=== PATIENT | male | born 1970 | race Caucasian/White ===

== ENCOUNTER 2023-03-09 18:17 | Inpatient (IN) | payer OTHER, SELFPAY ==
[~2023-03-09 18:17] MED LIST: Iopamidol-370 76% 500 ML MDV (1 ML CHARGE) ONE
[2023-03-09 18:47] LABS: #Basophils 0.1 thou/uL (0.0-0.2); #Eosinphils 0.2 thou/uL (0.0-0.7); #Neutrophils 6.5 thou/uL (1.40-6.50); %Basophils 0.7 % (0.0-1.0); %Lymphocytes 28.4 % (21.0-51.0); %Monocytes 8.9 % (0.0-10.0); %Neutrophils 59.7 % (42.0-75.0); Hemoglobin 14.3 g/dL (14.0-18.0); Mean Corpuscular HGB CONC 35.2 g/dL (32.0-36.0); Mean Corpuscular Hemoglobin 30.1 pg (27.0-31.0); Mean Corpuscular Volume 85.5 fl (78.0-98.0); Mean Platelet Volume 9.5 fL (7.4-10.4); Platelet Count 189 10x3/uL (130-400); Red Blood Cell (RBC) Count 4.75 mill/uL (4.70-6.10); White Blood Cell (WBC) Count 10.9 10x3/uL (4.8-10.8)
[2023-03-09 19:00] LABS: PTT 29.7 sec (22.9-36.1); Prothrombin Time 13.7 sec (12.0-14.7)
[2023-03-09 19:19] LABS: ALT (SGPT) 18 U/L (8-55); AST (SGOT) 20 U/L (5-34); Albumin 3.9 g/dL (3.5-5.0); Alkaline Phosphatase 95 U/L (40-110); Anion Gap 12 mmol/L (10-20); BUN (Urea Nitrogen) 9 mg/dL (8.4-25.7); Bilirubin, Total 0.4 mg/dL (0.2-1.2); CK (CPK) 60 U/L (30-200); Calc. Creatinine Clearance 0 mL/min (70-130); Calcium 9.1 mg/dL (7.8-10.44); Carbon Dioxide 24 mmol/L (22-29); Chloride 102 mmol/L (98-107); Estimated GFR 102; Globulin 2.9 g/dL (2.4-3.5); Glucose 105 mg/dL (70-105); Potassium 3.7 mmol/L (3.5-5.1); Protein, Total 6.8 g/dL (6.0-8.3); Sodium 134 mmol/L (136-145)
[2023-03-09] MEDS ORDERED: Lidocaine 1% (PF) 30 ML VIAL ONE (19:21)
[2023-03-09] MEDS ORDERED: Heparin 10,000 UNITS/ 10 ML VIAL ONE (19:22)
[2023-03-09] MEDS ORDERED: SUGAMMADEX SODIUM 200 MG/2 ML VIAL ONE (19:24)
[2023-03-09 19:34] LABS: CKMB 2.1 ng/mL (0-6.6)
[2023-03-09] MEDS ORDERED: niCARdipine 25 MG/10 ML SDV ONE (19:45)
[2023-03-09] MEDS ORDERED: Acetaminophen 325 MG TAB PO PRN (19:54)
[2023-03-09] MEDS ORDERED: niCARdipine 25 MG in Sodium Chloride 0.9% 250 ML 250 ML IVPB PRN (19:54)
[2023-03-09] MEDS ORDERED: PROPOFOL 200 MG/20 ML VIAL ONE (20:01)
[2023-03-09] MEDS ORDERED: Ondansetron PF 4 MG/2 ML Vial ONE (20:01)
[2023-03-09] MEDS ORDERED: Rocuronium Bromide 10 MG/ML (10ML VIAL) ONE (20:01)
[2023-03-09] MEDS ORDERED: Electrolyte Replacement Protocol 1 EACH FS SCH (21:13)
[2023-03-09] MEDS ORDERED: Dextrose 50% Abboject 50 ML SYRINGE SLOW IVP PRN (21:13)
[2023-03-09] MEDS ORDERED: Dextrose 5% in Water 1,000 ML IV PRN (21:13)
[2023-03-09] MEDS ORDERED: Glucagon 1 MG/ML KIT IM PRN (21:13)
[2023-03-09] MEDS: Atorvastatin Calcium 40 MG TAB PO SCH (21:40)
[2023-03-09] MEDS: Sodium Chloride 0.9% 1,000 ML IV SCH (21:40)
[2023-03-09 22:44] LABS: Amphetamine Detected (NotDetected); Barbiturates Screen Not Detected (NotDetected); Benzodiazepine Screen Not Detected (NotDetected); Cocaine Metabolite Screen Not Detected (NotDetected); Methadone Not Detected (NotDetected); Methamphetamine Detected (NotDetected); Opiate Screen Not Detected (NotDetected); Oxycodone Screen Not Detected (NotDetected); Phencyclidine (PCP) Not Detected (NotDetected); THC/Cannabinoid Screen Not Detected (NotDetected); Tricyclic Screen Not Detected (NotDetected)
[2023-03-09] MEDS: Labetalol HCl 100 MG/20 ML VIAL SLOW IVP PRN (23:38)
[2023-03-10] MEDS: hydrALAZINE 20 MG/ML VIAL SLOW IVP PRN (01:21)
[2023-03-10] MEDS: Sodium Chloride 0.9% 1,000 ML IV SCH ×2 (01:22→20:58)
[2023-03-10] MEDS: Labetalol HCl 100 MG/20 ML VIAL SLOW IVP PRN (02:36)
[2023-03-10 04:12] LABS: Anion Gap 12 mmol/L (10-20); BUN (Urea Nitrogen) 8 mg/dL (8.4-25.7); Calc. Creatinine Clearance 145 mL/min (70-130); Calcium 8.6 mg/dL (7.8-10.44); Carbon Dioxide 24 mmol/L (22-29); Cardiac Risk 4.3 (Less than 4.5); Chloride 104 mmol/L (98-107); Cholesterol 187 mg/dl (< 200 Desired); Estimated GFR 104; Glucose 120 mg/dL (70-105); HDL Cholesterol 44 mg/dL (>60 Neg Risk); LDL Cholesterol, Calculated 109 mg/dL; Magnesium 1.8 mg/dL (1.6-2.6); Potassium 3.6 mmol/L (3.5-5.1); Sodium 136 mmol/L (136-145); Triglycerides 169 mg/dL (Less than 150)
[2023-03-10 06:42] VITALS: BMI 27.2
[2023-03-10] MEDS ORDERED: Magnesium 2 GM/50 ML(in water) 2 GM in Premix Bag 1 BAG IVPB SCH (08:00)
[2023-03-10] MEDS: Famotidine/PF 20 mg/2ml Vial SLOW IVP SCH ×2 (08:27→20:58)
[2023-03-10] MEDS: Aspirin 325 mg Enteric Coated Tablet PO SCH (08:27)
[2023-03-10] MEDS: Aspirin 300 MG Suppository PR SCH (08:28)
[2023-03-10] MEDS: Atorvastatin Calcium 40 MG TAB PO SCH (21:02)
[2023-03-11] MEDS: Labetalol HCl 100 MG/20 ML VIAL SLOW IVP PRN ×6 (02:05→22:54)
[2023-03-11] MEDS: Aspirin 325 mg Enteric Coated Tablet PO SCH (08:18)
[2023-03-11] MEDS: Famotidine/PF 20 mg/2ml Vial SLOW IVP SCH ×2 (08:20→21:37)
[2023-03-11] MEDS: Sodium Chloride 0.9% 1,000 ML IV SCH ×2 (08:21→21:37)
[2023-03-11] MEDS: Aspirin 300 MG Suppository PR SCH (08:28)
[2023-03-11] MEDS ORDERED: Iopamidol-370 76% 500 ML MDV (1 ML CHARGE) ONE (10:43)
[2023-03-11] MEDS: hydrALAZINE 20 MG/ML VIAL SLOW IVP PRN (17:25)
[2023-03-11 21:09] LABS: #Basophils 0.1 thou/uL (0.0-0.2); #Eosinphils 0.2 thou/uL (0.0-0.7); #Neutrophils 6.6 thou/uL (1.40-6.50); %Basophils 0.7 % (0.0-1.0); %Eosinophils 2.3 % (0.0-10.0); %Lymphocytes 21.9 % (21.0-51.0); %Monocytes 9.5 % (0.0-10.0); %Neutrophils 65.1 % (42.0-75.0); Hemoglobin 13.7 g/dL (14.0-18.0); Mean Corpuscular HGB CONC 34.8 g/dL (32.0-36.0); Mean Corpuscular Hemoglobin 30.2 pg (27.0-31.0); Mean Corpuscular Volume 86.8 fl (78.0-98.0); Mean Platelet Volume 9.9 fL (7.4-10.4); Platelet Count 223 10x3/uL (130-400); RBC Distribution Width 13.3 % (11.5-14.5); Red Blood Cell (RBC) Count 4.54 mill/uL (4.70-6.10); White Blood Cell (WBC) Count 10.1 10x3/uL (4.8-10.8)
[2023-03-11 21:20] LABS: Hemoglobin A1c 5.6 % (4.0-6.0)
[2023-03-11 21:34] LABS: ALT (SGPT) 17 U/L (8-55); AST (SGOT) 18 U/L (5-34); Albumin 3.9 g/dL (3.5-5.0); Alkaline Phosphatase 89 U/L (40-110); Anion Gap 11 mmol/L (10-20); BUN (Urea Nitrogen) 12 mg/dL (8.4-25.7); Bilirubin, Total 0.3 mg/dL (0.2-1.2); Calc. Creatinine Clearance 121 mL/min (70-130); Calcium 9.4 mg/dL (7.8-10.44); Carbon Dioxide 23 mmol/L (22-29); Chloride 103 mmol/L (98-107); Estimated GFR 93; Glucose 124 mg/dL (70-105); Potassium 3.4 mmol/L (3.5-5.1); Protein, Total 6.9 g/dL (6.0-8.3); Sodium 134 mmol/L (136-145)
[2023-03-11] MEDS: Atorvastatin Calcium 40 MG TAB PO SCH (21:37)
[2023-03-12] MEDS ORDERED: Potassium Chloride 20 MEQ TAB PO SCH (00:15)
[2023-03-12] MEDS ORDERED: Electrolyte Replacement Protocol 1 EACH FS SCH (00:15)
[2023-03-12] MEDS: hydrALAZINE 20 MG/ML VIAL SLOW IVP PRN ×3 (00:34→16:50)
[2023-03-12] MEDS ORDERED: Amlodipine 5 MG TAB PO SCH ×2 (01:30→09:00)
[2023-03-12] MEDS ORDERED: Lorazepam 2 MG/ML VIAL SLOW IVP SCH (04:30)
[2023-03-12] MEDS ORDERED: Lisinopril 10 MG TAB PO SCH (09:00)
[2023-03-12] MEDS ORDERED: Famotidine 20 MG TAB PO SCH (09:45)
[2023-03-12] MEDS: Aspirin 325 mg Enteric Coated Tablet PO SCH (09:48)
[2023-03-12] MEDS: Lisinopril 5 MG TAB PO SCH ×2 (09:49→21:40)
[2023-03-12] MEDS: Aspirin 300 MG Suppository PR SCH (09:49)
[2023-03-12] MEDS: Famotidine/PF 20 mg/2ml Vial SLOW IVP SCH (09:50)
[2023-03-12] MEDS: Sodium Chloride 0.9% 1,000 ML IV SCH ×2 (10:42→23:28)
[2023-03-12] MEDS ORDERED: Carvedilol 6.25 MG TAB PO SCH (17:00)
[2023-03-12] MEDS: Famotidine 20 MG TAB PO SCH (21:40)
[2023-03-12] MEDS: Atorvastatin Calcium 40 MG TAB PO SCH (21:41)
[2023-03-13] MEDS: hydrALAZINE 20 MG/ML VIAL SLOW IVP PRN (00:35)
[2023-03-13 06:24] LABS: Anion Gap 12 mmol/L (10-20); BUN (Urea Nitrogen) 15 mg/dL (8.4-25.7); Calc. Creatinine Clearance 117 mL/min (70-130); Calcium 9.7 mg/dL (7.8-10.44); Carbon Dioxide 22 mmol/L (22-29); Chloride 106 mmol/L (98-107); Estimated GFR 89; Glucose 112 mg/dL (70-105); Potassium 4.4 mmol/L (3.5-5.1); Sodium 136 mmol/L (136-145)
[2023-03-13] MEDS ORDERED: Lisinopril 5 MG TAB PO SCH (07:42)
[2023-03-13] MEDS ORDERED: Magnesium 2 GM/50 ML(in water) 2 GM in Premix Bag 1 BAG IVPB SCH (08:00)
[2023-03-13] MEDS: Carvedilol 6.25 MG TAB PO SCH ×2 (08:34→17:27)
[2023-03-13] MEDS: Famotidine 20 MG TAB PO SCH ×2 (08:34→20:52)
[2023-03-13] MEDS: Spironolactone 25 MG TAB PO SCH (08:34)
[2023-03-13] MEDS: Lisinopril 10 MG TAB PO SCH ×2 (08:35→20:52)
[2023-03-13] MEDS: Aspirin 325 mg Enteric Coated Tablet PO SCH (08:36)
[2023-03-13] MEDS: Atorvastatin Calcium 40 MG TAB PO SCH (20:52)
[2023-03-14] MEDS: Lisinopril 20 MG TAB PO SCH ×2 (08:35→20:17)
[2023-03-14] MEDS: Aspirin 325 mg Enteric Coated Tablet PO SCH (08:36)
[2023-03-14] MEDS: Famotidine 20 MG TAB PO SCH ×2 (08:36→20:17)
[2023-03-14] MEDS: Carvedilol 25 MG TAB PO SCH ×2 (08:36→17:25)
[2023-03-14] MEDS: Spironolactone 25 MG TAB PO SCH (08:36)
[2023-03-14 11:17] VITALS: TEMP 99
[2023-03-14] MEDS: Atorvastatin Calcium 40 MG TAB PO SCH (20:17)
[2023-03-14 20:22] VITALS: BP 135/83
== END 2023-03-14 20:55 | disposition home or self-care (01) | DRG 23 ==
LOC: ERS 18:17 → SDC/OP 19:54 → CCU 21:03 → NEURO 03-10 12:19
PROVIDERS: ADMIT Internal Medicine; ATTEND Internal Medicine
PROC: 03CG3ZZ Extirpation of Matter from Intracranial Artery, Percutaneous Approach (ICD-10-PCS; principal; 2023-03-09)
PROC: B31R1ZZ Fluoroscopy of Intracranial Arteries using Low Osmolar Contrast (ICD-10-PCS; 2023-03-09)
DX: I63.512 Cerebral infarction due to unspecified occlusion or stenosis of left middle cerebral artery (principal); R29.709 NIHSS score 9; G93.6 Cerebral edema; I50.21 Acute systolic (congestive) heart failure; I16.1 Hypertensive emergency; I42.0 Dilated cardiomyopathy; F15.10 Other stimulant abuse, uncomplicated; R47.01 Aphasia; F17.210 Nicotine dependence, cigarettes, uncomplicated; G89.29 Other chronic pain; M54.9 Dorsalgia, unspecified; I11.0 Hypertensive heart disease with heart failure; G83.21 Monoplegia of upper limb affecting right dominant side; Z78.1 Physical restraint status; Z91.018 Allergy to other foods
CPT/HCPCS: 0042T; 36415; 36416; 61645; 70450; 70496; 70498; 70551; 80048; 80053; 80061; 80306; 82550; 82553; 83036; 83090; 83735; 83880; 84443; 84484; 85025; 85610; 85730; 93005; 93306; C1769; C1894; J0360; J1644; J1650; J2001; J2060; J2405; J2704; J3475; J7050; Q9967; S0028